=== PATIENT | male | born 1985 | race Two or more races ===

== ENCOUNTER 2022-01-20 08:57 | Emergency (ER) | payer BC, SELFPAY ==
--- NOTE | 2022-01-20 09:16 | HMH.EDUTC ---
[facility] [place] Disposition Clinical Impression: Epididymitis Disposition: Home, Self-Care Condition on Discharge: Good Instructions: DI for Epididymitis, Ceftriaxone Injection Additional Instructions: Drink plenty of fluids. Water would be best. Take tylenol or ibuprofen for pain or fever. Take the medications as directed. Follow up with your regular doctor. GO TO THE ER FOR ANY WORSENING SYMPTOMS Prescriptions: Doxycycline Monohydrate [Doxycycline [place] 100mg Tab] 100 mg PO Q12 10 Days #20 tab Transmission Status: Received by [facility] Referrals: Derrick Hoang [Primary Care Provider] - Forms: Work/School Release Time of Disposition: 10:31 Medical Decision Making - Medical Records Medical records reviewed: No: I reviewed the patient's medical records. - Pedro Inquiry Pt receiving controlled substance: No Vital Signs: 01/20/22 09:24 01/20/22 10:47 Temperature 100.0 F H 100.0 F H Temperature Source Oral Pulse Rate 94 H Pulse Rate [Left] 94 H Respiratory Rate 18 18 Blood Pressure 165/109 H Blood Pressure [Right Arm] 165/109 H Blood Pressure Mean [Right Arm] 127 02 Sat by Pulse Oximetry 97 - Lab Data Lab results reviewed: Yes: I reviewed the patient's lab results. Lab Results 01/20/22 09:26: Urine Color Dark yellow, Urine Appearance Clear, Urine pH 7.0, Ur Specific [place] 1.020, Urine Protein 1+, Urine Glucose (UA) Negative, Urine Ketones Negative, Urine Blood 1+, Urine Nitrate Negative, Urine Bilirubin Negative, Urine Urobilinogen 0.2, Ur Leukocyte Esterase Negative Orders (Tests/Meds): ED MEDICATIONS Discontinued Medications Generic Name Dose Route Start Last Admin Trade Name Freq PRN Reason Stop Dose Admin Ceftriaxone Sodium 1 gm 01/20/22 10:28 01/20/22 10:44 Ceftriaxone 1gm Vial IM 01/20/22 10:29 1 gm ONCE ONE Administration Lidocaine HCl 0 ml 01/20/22 10:28 01/20/22 10:44 Lidocaine 1% 5ml Pf Vial IM 01/20/22 10:29 2 ml ONCE ONE Administration ORDERS Category Date Time Status Urine Culture Stat Micro 01/20/22 09:10 Received US scrotum [US Testicular] Stat Ultrasound 01/20/22 09:23 Ordered - US Data US Images: Other (scrotal u/s) ED US Reviewed: Yes: I have viewed radiologist's interpretation Findings Narrative: no torsion noted, good blood flow noted through out, [facility] [place] HPI - General Stated complaint: RT testicle swollen, fever, pelvic pain Time Seen by Provider: 01/20/22 09:16 - History of Present Illness Provider Complaint: He states that since yesterday, he has had right testicle swelling and tenderness. He denies any actual pain of the testicle. He denies any injury. He denies any history of having symptoms similar to this. He has no history of having any hernias. - Related Data Previous Rx's Medication Instructions Recorded Doxycycline Monohydrate 100 mg PO Q12 10 Days #20 tab 01/20/22 [Doxycycline [place] 100mg Tab] Allergies Allergy/AdvReac Type Severity Reaction Status Date / Time No Known Allergies Allergy Verified 01/20/22 09:26 [facility] History - Hepatitis A Screen Attestation statement:: This patient has been screened for Hepatitis A risk factors. I have reviewed the patient's past medical history: Yes ROS Obtained: Yes All systems reviewed & no additional complaints - Constitutional Constitutional: Reports chills, Reports fever(s), Denies poor appetite, Reports malaise - Eyes Eyes: Denies eye discharge - ENT Ears, Nose, Mouth, and Throat: Denies dizziness, Denies otalgia, Denies sore throat - Genitourinary Male Genitourinary: Denies difficulty urinating, Denies flank pain, Denies genital pain, Denies hematuria, Reports scrotal swelling, Denies testicular mass, Denies testicular pain, Denies urinary frequency, Denies urinary hesitancy - Musculoskeletal Musculoskeletal: Denies joint pain, Denies back pain - Integumentary/Breasts Skin/Breast: Denies
--- NOTE | 2022-01-20 09:23 | US_ITS ---
FINAL REPORT CLINICAL HISTORY: swollen and tender right testicle, no injury FINDINGS: Technique: Ultrasound images of the testicles were obtained. Findings: The right testicle measures 4.2 x 4.0 x 3.0 cm. The left testicle measures 4.2 x 3.4 x 2.3 cm. No intratesticular mass identified. There is a small right hydrocele. Arterial flow is identified bilaterally. The right epididymis is somewhat enlarged and heterogeneous. There is increased flow to the right testicle. IMPRESSION: Right epididymo-orchitis with questionable right varicocele. Reviewed, Interpreted and Dictated by Urban Rod III, MD Transcribed by Maxx Garrido Authenticated and [facility]
[2022-01-20 09:24] VITALS: BP 165/109; PULSE 94; RESP 18; TEMP 37.8; O2SAT 97; BMI 33.0
[2022-01-20 09:32] LABS: Apearance,Urine Clear (Clear); Bilirubin,Urine Negative (Negative); Blood, Urine 1+ (Negative); Color,Urine Dark Yellow (Yellow); Glucose,Urine (UA) Negative (Negative); Ketones,Urine Negative (Negative); Protein,Urine 1+ (Negative); UTC Leukocyte Esterase,Urine Negative (Negative); UTC Nitrate,Urine Negative (Negative); Urobilinogen,Urine 0.2 EU/dl (0.2)
[2022-01-20 10:47] VITALS: BP 165/109; PULSE 94; RESP 18; TEMP 37.8
[2022-01-21 22:08] LABS: Neisseria gonorrhoeae, NAA Negative (Negative)
== END 2022-01-20 10:51 | disposition home or self-care (01) ==
PROVIDERS: Emergency Provider Nurse Practitioner Family; PCP Family Medicine
DX: N45.1 Epididymitis (principal); R53.81 Other malaise
CPT/HCPCS: 76870; 81003; 87086; 87491; 87591; 96372; 99213; G0463; J0696